=== PATIENT | male | born 1995 | race African-American/Black ===

== ENCOUNTER 2021-12-15 12:39 | Emergency (ER) | payer OTHER ==
[~2021-12-15] VITALS: Ht 175.3 cm; Wt 85.8 kg
--- NOTE | 2021-12-15 13:57 | NUR ---
AT BEDSIDE TO EXAM PATIENT
[2021-12-15] MEDS ORDERED: CEFTRIAXONE 1 G VIAL ONE (14:28)
[2021-12-15] MEDS ORDERED: LIDOCAINE HCL 1% 20 ML VIAL ONE (14:30)
[2021-12-15] MEDS ORDERED: CEFTRIAXONE 1 G VIAL IM ONE (14:30)
[2021-12-15 14:45] LABS: HEMATOCRIT 47.6 % (36.7-47.1); MEAN CORPUSCULAR HEMOGLOBIN 27.2 uug (23.8-33.4); MEAN CORPUSCULAR VOLUME 82.9 fL (73.0-96.2); PLATELET COUNT (AUTO) 196 K/uL (152-348)
[2021-12-15 14:47] LABS: CREATININE 1.3 mg/dL (0.6-1.3); POTASSIUM 3.8 mmol/L (3.5-5.1)
[2021-12-15] MEDS ORDERED: DOXY-326 PO (15:29)
--- NOTE | 2021-12-15 15:52 | NUR ---
PATIENT WAS SEEN AND DISCHARED IN STABLE CONDITION.DISC HARGE INSTRUCTIONS GIVEN TO PATIENT. PATIENT VERBELIZED UNDERSTANDING.
[2021-12-15 15:59] LABS: *BILIRUBIN,URIN NEGATIVE (NEGATIVE); *BLOOD, URINE NEGATIVE (NEGATIVE); *CLARITY,URINE CLEAR (CLEAR); *COLOR,URINE YELLOW (YELLOW); *KETONES,URINE TRACE (NEGATIVE); *UROBILINOGEN,URINE 0.2 E.U./dl (NORMAL); LEUKOCYTE ESTERASE ,URINE NEGATIVE (NEGATIVE); NITRITE, URINE NEGATIVE (NEGATIVE); UGLUCOSE NEGATIVE (NEGATIVE)
[2021-12-15 16:27] LABS: BACTERIA,URINE FEW /HPF (NONE SEEN); RBC,URINE 0-3 /HPF (0-3); SQUAMOUS EPITHELIAL CELL,UR FEW /HPF (NONE SEEN); WBC,URINE 0-3 /HPF (0-3)
[2021-12-18 21:06] LABS: *GC NAA Negative (Negative); *TRIC.VAG. NAA Negative (Negative)
== END 2021-12-15 15:56 | disposition home or self-care (01) ==
LOC: ER 12:39
DX: Z11.3 Encounter for screening for infections with a predominantly sexual mode of transmission (principal); R36.9 Urethral discharge, unspecified; Z72.51 High risk heterosexual behavior
CPT/HCPCS: 99283; 80048; 81001; 85025; 36415; 96372; 87491; J0696; J3490; A4663

== ENCOUNTER 2021-12-17 08:09 | Emergency (ER) | payer OTHER ==
[~2021-12-17] VITALS: Ht 175.3 cm; Wt 83.9 kg
[~2021-12-17 08:09] MED LIST: DOXY-326 PO
[2021-12-17] MEDS ORDERED: ONDANSETRON 4 MG/2 ML VIAL IV ONE (08:30)
[2021-12-17] MEDS ORDERED: IV NORMAL SALINE 1000 ML BAG IV ONE (08:30)
[2021-12-17] MEDS ORDERED: ONDANSETRON 4 MG/2 ML VIAL ONE (08:32)
[2021-12-17] MEDS ORDERED: KETOROLAC TROMETHAMINE 15 MG INJ ONE (08:34)
[2021-12-17 08:45] LABS: CREATININE 1.3 mg/dL (0.6-1.3)
[2021-12-17] MEDS ORDERED: KETOROLAC TROMETHAMINE 15 MG INJ IVP ONE (08:45)
[2021-12-17 08:49] LABS: HEMATOCRIT 48.3 % (36.7-47.1); MEAN CORPUSCULAR HEMOGLOBIN 27.4 uug (23.8-33.4); MEAN CORPUSCULAR VOLUME 83.3 fL (73.0-96.2); PLATELET COUNT (AUTO) 154 K/uL (152-348)
[2021-12-17 08:51] LABS: BILIRUBIN,DIRECT 0.1 mg/dL (0.0-0.2); BILIRUBIN,TOTAL 0.7 mg/dL (0.2-1.0); TOTAL PROTEIN, SERUM 7.8 g/dL (6.4-8.2)
--- NOTE | 2021-12-17 09:18 | NUR ---
IV site infiltrated. Removed IV intact. Site okay and bandaged. Approximately 200 mL NS had infused.
[2021-12-17] MEDS ORDERED: ONDA4TAB5 PO (10:18)
--- NOTE | 2021-12-17 10:27 | NUR ---
Gave pt RX and d/c instructions, pt verbalized understanding.
[2021-12-17 10:28] VITALS: BP 127/68
== END 2021-12-17 10:29 | disposition home or self-care (01) ==
LOC: ER 08:09
DX: R11.10 Vomiting, unspecified (principal)
CPT/HCPCS: 99284; 96374; 96375; 80076; 80048; 83690; 85025; 36415; J1885; J2405; J7040; A4663